=== PATIENT | male | born 1965 | race Caucasian/White ===

== ENCOUNTER 2019-11-27 20:12 | Emergency (ER) | payer MEDICAID ==
[~2019-11-27] VITALS: Ht 185.4 cm; Wt 113.4 kg
[~2019-11-27 20:12] MED LIST: ASPIRIN81 MG ORAL; BACITRACIN-P28.35 GM TP; CLINDAMYCIN HC300 MG ORAL; LEXAPRO10 MG ORAL; LIPITOR10 MG ORAL; METHOCARBAMOL500 MG ORAL; NAPROSYN500 M1 ORAL; NUCYNTA50 MG PO; SERTRALINE HCL50 MG ORAL; TYLENOL EXTRA500 MG ORAL
[2019-11-27 20:30] VITALS: BP 169/113
[2019-11-27] MEDS ORDERED: NORCO 10-325 T1 EACH ORAL (20:30)
[2019-11-27] MEDS ORDERED: Morphine Sulfate 4mg/ml Inj (IV USE ONLY) IVP ONE ×2 (20:30→22:30)
[2019-11-27] MEDS ORDERED: TOPIRAMATE100 MG ORAL (20:30)
--- NOTE | 2019-11-27 20:30 | NUR ---
ED Nurse Note: Pt walked into ED from home for c/o constant chest pain since last night. Pt also reports n/v and has not been able to keep down his pain medication at home in which he takes morphine and norco. Pt also reports pain in his back. Pt states he has vomited any oral intake he has had over the last two days and feels dehydrated. Pt notes strong family hx of CAD and is concerned. Pt is aaox4, breathing is normal and unlabored, no SOB. Pt connected to monitor and storage bin tender, EKG bedside. Will continue to monitor.
--- NOTE | 2019-11-27 20:47 | Emergency Room Report ---
History of Present Illness General Chief Complaint: Chest Pain Source: Patient Present Illness HPI Patient presents with left-sided chest pain radiating to his neck. He began last night. Is fairly constant. He has been vomiting cannot keep down his pain medication. Usually takes 10 mg of morphine and has backup [place] for breakthrough pain. Is been unable to keep down his medications. His stools have been somewhat loose. Denies diaphoresis. He is concerned because he has a very strong family history of coronary disease. Pain in chest /10 now. Back pain is slightly worse but he is used to this - more concerned about chest. Some loose stools - feels might be related to withdrawal. Feverish, not documented. The chronic pain he is treated for his after multiple back surgeries. Is currently disabled. Risk factors strong family history, no diabetes, smoking or hypertension. Has had eval for aneurism = negative in past. 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 Patient History Past Medical History: see triage record Past Surgical History: other - multiple spinal surgeries Pertinent Family History: other - from heart attacks at early age Social History: Reports: alcohol use; Denies: smoking, drug use Social History Narrative Disabled - 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 [employer] Reviewed Nursing Documentation: PMH: Agreed; PSxH: Agreed Nursing Documentation-PMH Past Medical History: No History, Except For Hx Cardiac Problems: Yes - tranthoracic discectomy 2000 Hx Cancer: No Hx Gastrointestinal Problems: No Hx Neurological Problems: Yes - Spinal Stenosis, Back surgery Review of Systems All Other Systems: negative except mentioned in HPI Physical Exam Vital Signs Date Time Temp Pulse Resp B/P (MAP) Pulse Ox O2 Delivery O2 Flow Rate FiO2 11/27/19 20:25 99.0 93 16 169/113 (131) 100 Room Air Sp02 EP Interpretation: reviewed, normal General Appearance: well appearing, no apparent distress, GCS 15 Head: normocephalic Eyes: bilateral eye normal inspection, bilateral eye PERRL, bilateral eye EOMI ENT: moist mucus membranes Neck: full range of motion, supple Respiratory: lungs clear, normal breath sounds Cardiovascular #1: regular rate, rhythm Cardiovascular #2: 2+ radial (R) Gastrointestinal: normal inspection, normal bowel sounds, non tender, no mass, non-distended Genitourinary: no CVA tenderness Musculoskeletal: normal range of motion, digits/nails normal, no calf tenderness, gait/station normal, tender - back, no bone tenderness Neurologic: alert, oriented x3, grossly normal Psychiatric: mood/affect normal Skin: no rash, warm/dry, other - no diaphoresis Medical Decision Making Diagnostic Impression: Primary Impression: ACS (acute coronary syndrome) Additional Impressions: Opiate withdrawal Chronic thoracic back pain Qualified Codes: M54.6 - Pain in thoracic spine; G89.29 - Other chronic pain ER Course Patient with left-sided chest pain radiating to his neck with positive family history. Differential includes acute myocardial infarction, unstable angina, acute coronary syndrome, chest wall pain, gastroenteritis, viral syndrome, opiate withdrawal amongst others. Patient evaluated with EKG, chest x-ray and labs. Patient placed on a nurse monitoring. Aspirin administered along with Zofran and morphine. Based on history and VS, doubt PE or dissection. EKG normal sinus rhythm normal EKG. CXR chronic changes as below. Labs remarkable for neg troponin. Improved. 5/10 pain. Patient presented to , [facility] who accepts. Repeat morphine. Metoprolol and lovenox ordered. Pain decreased to 3/10 and improved. Laboratory Tests Test 11/27/19 20:10 11/27/19 20:30 White Blood Count 8.7 K/UL (4.8-10.8) Red Blood Count 5.15 M/UL (4.70-6.10) Hemoglobin 16.7 G/DL (14.2-18.0) Hematocrit 50.6 % (42.0-52.0) Mean Corpuscular Volume 98 FL (80-99) Mean Corpuscular Hemoglobin 32.4 PG (27.0-31.0) H Mean Corpuscular Hemoglobin Concent 33.0 G/DL (32.0-36.0) Red Cell Distribution Width 12.9 % (11.6-14.8) Platelet Count 217 K/UL (150-450) Mean Platelet Volume 5.2 FL (6.5-10.1) L Neutrophils (%) (Auto) 67.6 % (45.0-75.0) Lymphocytes (%) (Auto) 25.1 % (20.0-45.0) Monocytes (%) (Auto) 6.6 % (1.0-10.0) Eosinophils (%) (Auto) 0.3 % (0.0-3.0) Basophils (%) (Auto) 0.4 % (0.0-2.0) Prothrombin Time 11.9 SEC (9.30-11.50) H Prothrombin Time INR 1.1 (0.9-1.1) Activated Partial Thromboplast Time 31 SEC (23-33) Sodium Level 143 MMOL/L (136-145) Potassium Level 3.6 MMOL/L (3.5-5.1) Chloride Level 107 MMOL/L (98-107) Carbon Dioxide Level 21 MMOL/L (21-32) Anion Gap 15 mmol/L (5-15) Blood Urea Nitrogen 13 mg/dL (7-18) Creatinine 1.1 MG/DL (0.55-1.30) Estimated Glomerular Filtration Rate > 60 mL/min (>60) Glucose Level 100 MG/DL (74-106) Calcium Level 9.0 MG/DL (8.5-10.1) Total Bilirubin 0.5 MG/DL (0.2-1.0) Aspartate Amino Transferase (AST) 23 U/L (15-37) Alanine Aminotransferase (ALT) 45 U/L (12-78) Alkaline Phosphatase 47 U/L (46-116) Total Creatine Kinase 136 U/L (26-308) Troponin I 0.000 ng/mL (0.000-0.056) Pro-B-Type Natriuretic Peptide 87 pg/mL (0-125) Total Protein 8.1 G/DL (6.4-8.2) Albumin 4.6 G/DL (3.4-5.0) Globulin 3.5 g/dL Albumin/Globulin Ratio 1.3 (1.0-2.7) Urine Color Yellow Urine Appearance Clear Urine pH 5 (4.5-8.0) Urine Specific [place] 1.025 (1.005-1.035) Urine Protein 1+ (NEGATIVE) H Urine Glucose (UA) Negative (NEGATIVE) Urine Ketones 1+ (NEGATIVE) H Urine Blood 1+ (NEGATIVE) H Urine Nitrite Negative (NEGATIVE) Urine Bilirubin Negative (NEGATIVE) Urine Urobilinogen Normal MG/DL (0.0-1.0) Urine Leukocyte Esterase Negative (NEGATIVE) Urine RBC 0-2 /HPF (0 - 0) H Urine WBC 0-2 /HPF (0 - 0) Urine Squamous Epithelial Cells None /LPF (NONE/OCC) Urine Bacteria Few /HPF (NONE) Urine Mucus Moderate /LPF (NONE/OCC) H Urine Opiates Screen Negative (NEGATIVE) Urine Barbiturates Screen Negative (NEGATIVE) Phencyclidine (PCP) Screen Negative (NEGATIVE) Urine Amphetamines Screen Negative (NEGATIVE) Urine Benzodiazepines Screen Negative (NEGATIVE) Urine Cocaine Screen Negative (NEGATIVE) Urine Marijuana (THC) Screen Negative (NEGATIVE) EKG Diagnostic Results Rate: normal Rhythm: NSR ST Segments: no acute changes Rhythm Strip Diag. Results EP Interpretation: yes Rhythm: NSR, no PVC's, no ectopy Chest X-Ray Diagnostic Results Chest X-Ray Diagnostic Results : Chest X-Ray Ordered: Yes # of Views/Limited/Complete: 1 View Indication: Chest Pain EP Interpretation: Yes Interpretation: no effusion, no pneumothorax, other - Surgical hardware upper back, elevated left hemidiaphragm and some atelectasis on the left Impression: Other Electronically Signed by: Electronically signed by Yaniv Sadler MD Last Vital Signs Date Time Temp Pulse Resp B/P (MAP) Pulse Ox O2 Delivery O2 Flow Rate FiO2 11/27/19 23:34 62 17 131/73 98 Room Air 11/27/19 20:30 99.0 Status: improved Disposition: SHORT-TERM HOSP Condition: Serious Referrals: NON PHYSICIAN (PCP) Yaniv Sadler MD Nov 27, 2019 20:47
[2019-11-27 21:19] LABS: ANION GAP 15 mmol/L (5-15); BLOOD UREA NITROGEN 13 mg/dL (7-18); CARBON DIOXIDE 21 MMOL/L (21-32); CHLORIDE 107 MMOL/L (98-107); CREATININE 1.1 MG/DL (0.55-1.30); POTASSIUM 3.6 MMOL/L (3.5-5.1); SODIUM 143 MMOL/L (136-145)
--- NOTE | 2019-11-27 21:19 | Diagnostic Imaging Report ---
EXAM: XR Chest, 1 View CLINICAL HISTORY: CP TECHNIQUE: Frontal view of the chest. COMPARISON: 06/15/2016 FINDINGS: Lungs: Linear airspace density of the left lower lung, which is unchanged as compared to prior imaging. Given chronicity, this likely represents scarring. Pleural space: Unremarkable. No pneumothorax. Heart: Unremarkable. No cardiomegaly. Mediastinum: Unremarkable. Bones/joints: Unremarkable. Metallic hardware overlies the mid thoracic spine. Unchanged from prior imaging. Lower cervical spinal fusion hardware noted. Upper abdomen: Stable eventration of the left hemidiaphragm. IMPRESSION: No acute findings in the chest.
[2019-11-27 21:23] LABS: BASOPHILS % (AUTO) 0.4 % (0.0-2.0); EOSINOPHILS % (AUTO) 0.3 % (0.0-3.0); HEMATOCRIT 50.6 % (42.0-52.0); HEMOGLOBIN 16.7 G/DL (14.2-18.0); LYMPHOCYTES % (AUTO) 25.1 % (20.0-45.0); MEAN CORPUSCULAR VOLUME 98 FL (80-99); MONOCYTES % (AUTO) 6.6 % (1.0-10.0); NEUTROPHILS % (AUTO) 67.6 % (45.0-75.0); PLATELET COUNT 217 K/UL (150-450); RED BLOOD COUNT 5.15 M/UL (4.70-6.10); RED CELL DISTRIBUTION WIDTH 12.9 % (11.6-14.8); WHITE BLOOD COUNT 8.7 K/UL (4.8-10.8)
[2019-11-27 21:25] LABS: INR 1.1 (0.9-1.1)
[2019-11-27 21:31] LABS: ALANINE AMINOTRANSFERASE 45 U/L (12-78); ALBUMIN 4.6 G/DL (3.4-5.0); ALBUMIN/GLOBULIN RATIO 1.3 (1.0-2.7); ALKALINE PHOSPHATASE 47 U/L (46-116); ASPARTATE AMINO TRANSFERASE 23 U/L (15-37); BILIRUBIN,TOTAL 0.5 MG/DL (0.2-1.0); CREATINE KINASE 136 U/L (26-308)
[2019-11-27 21:41] LABS: APPEARANCE,URINE CLEAR; BILIRUBIN, URINE NEGATIVE (NEGATIVE); COLOR,URINE YELLOW; GLUCOSE, URINE (UA) NEGATIVE (NEGATIVE); KETONES,URINE 1+ (NEGATIVE); PH,URINE 5 (4.5-8.0); PROTEIN,URINE 1+ (NEGATIVE)
[2019-11-27 21:42] LABS: LEUKOCYTE ESTERASE ,URINE NEGATIVE (NEGATIVE); NITRITE,URINE NEGATIVE (NEGATIVE); UROBILINOGEN,URINE NORMAL MG/DL (0.0-1.0)
--- NOTE | 2019-11-27 21:45 | NUR ---
ED Nurse Note: Pt is on his cell phone, resting in bed. NAD. Safety measures in place.
[2019-11-27 22:04] VITALS: BP 134/80
[2019-11-27] MEDS ORDERED: Enoxaparin 120 mg inj SUBQ STA (22:24)
[2019-11-27] MEDS ORDERED: Metoprolol Tartrate 5mg/5ml Inj IVP STA (22:24)
--- NOTE | 2019-11-27 23:30 | NUR ---
ED Nurse Note: Pt is resting in bed, NAD. Vitals are stable. Pt notes mild decreased in pain. Will cont. to monitor. Awaiting on transport to [facility].
[2019-11-27 23:34] VITALS: BP 131/73
--- NOTE | 2019-11-28 | NUR ---
ED Nurse Note: Report given to ROLANDO Stuart at [facility].
[2019-11-28 00:05] VITALS: BP 141/80
--- NOTE | 2019-11-28 00:05 | NUR ---
ED Nurse Note: Pt is stable for transfer to [facility] at this time per ERMD. Pt is aaox4, breathing is normal and unlabored with stable vital signs. Pt being transported via [facility] ambulance ALS unit 25 via gurney. Report given to pharmacy assistant. Pt IV is patent and intact. Pt took all belongings.
== END 2019-11-28 00:05 | disposition short-term general hospital (02) ==
LOC: EMR 20:32 → EDBEDREQ 20:42 → EMR 11-28 00:05
DX: I24.9 Acute ischemic heart disease, unspecified (principal); F11.23 Opioid dependence with withdrawal; M54.6 Pain in thoracic spine; G89.29 Other chronic pain; R11.10 Vomiting, unspecified; Z88.2 Allergy status to sulfonamides; Z88.8 Allergy status to other drugs, medicaments and biological substances
CPT/HCPCS: 36415; 71045; 80053; 80307; 81003; 82550; 83880; 84484; 85025; 85610; 85730; 93005; 96361; 96374; 96375; 96376; J1650; J2270; J2405; J7030; Z7502; 99285

== ENCOUNTER 2020-06-19 12:06 | Emergency (ER) | payer MEDICAID ==
[~2020-06-19] VITALS: Ht 185.4 cm; Wt 111.1 kg
[~2020-06-19 12:06] MED LIST changes: +NORCO 10-325 T1 EACH ORAL; +TOPIRAMATE100 MG ORAL
--- NOTE | 2020-06-19 12:46 | NUR ---
ED Nurse Note: pt was taken to ct, ambulatory
--- NOTE | 2020-06-19 13:28 | Diagnostic Imaging Report ---
Indications: Fall, injury Technique: Spiral acquisitions obtained through the brain. Angled axial and coronal 5 x 5 mm slices were reconstructed. Total dose length product 1048 mGycm. CTDI vol(s) 53 mGy. Dose reduction achieved using automated exposure control Comparison: None. Findings: No acute intracranial hemorrhage or edema, mass effect, nor midline shift. Normal bella-white differentiation. Normal size ventricles and extra axial CSF spaces. Visualized orbits and sinuses are unremarkable. The mastoids are clear. The calvarium is intact. Impression: Negative The CT scanner at [facility] is accredited by the [employer] and the scans are performed using protocols designed to limit radiation exposure to as low as reasonably achievable to attain images of sufficient resolution adequate for diagnostic evaluation.
--- NOTE | 2020-06-19 13:41 | Diagnostic Imaging Report ---
Indication: Pain, trauma, status post fall, injury Technique: Spiral acquisitions obtained through the cervical spine. No IV contrast utilized. Multiplanar reconstructions were generated. Total dose length product 478 mGycm. CTDIvol(s) 19 mGy. Dose reduction achieved using automated exposure control. Comparison: No comparison CT scans. Reference made to plain radiographs 01/11/2016 Findings: Bony alignment is normal. Vertebral body heights are preserved. There is anterior fusion hardware bridging C5-6 and C6-7. This is new since the prior 2016 plain radiograph. The discs do not appear to be ankylosed. No acute fracture. No dislocation. At C3-4, there is mild narrowing of the neural foramen on the right. No significant disc narrowing, disc bulge or protrusion, or spinal canal stenosis. At C5-6, there is moderate to severe narrowing of the left neural foramen. There is a posterior osteophyte, but this does not appear to significantly compromise the spinal canal. At C6-7, there is posterior osteophyte complex resulting in mild narrowing of the spinal canal. There is moderate narrowing of the left neural foramen. At the remaining disc levels, no significant disc bulge or protrusion, spinal stenosis, or neural foraminal stenosis. Included extra spinal soft tissues are unremarkable Impression: No acute bony trauma Degenerative and postsurgical changes as described The CT scanner at [facility] is accredited by the [employer] and the scans are performed using protocols designed to limit radiation exposure to as low as reasonably achievable to attain images of sufficient resolution adequate for diagnostic evaluation.
--- NOTE | 2020-06-19 14:10 | Diagnostic Imaging Report ---
CLINICAL INDICATION:Trauma, fall, injury, pain TECHNIQUE: No oral contrast, per emergency room physician request. No IV contrast, per emergency room physician request. Spiral acquisitions obtained through the chest, abdomen, and pelvis. Multiplanar reconstructions were generated. Total dose length product 830 mGycm. CTDIvol(s) 11 mGy. Radiation dose was minimized using automated exposure control COMPARISON: none FINDINGS Chest: There is fusion hardware in the mid thoracic spine. The bones are otherwise unremarkable. No evidence of soft tissue contusion or hematoma A small peripheral bulla is seen in the medial right upper lobe. A few areas of air-trapping are seen in the right lower lobe. There is some atelectasis at the right lung base. The left hemidiaphragm is elevated and there are some atelectatic changes in the left lower lobe. Areas of air-trapping and possibly small bullae are seen in the left upper lobe. Scarring is seen in the medial left upper lobe. No infiltrates, effusions, masses, or nodules. No evidence of pulmonary contusion demonstrated. No mediastinal or hilar mass or adenopathy demonstrated. The thyroid is unremarkable. Heart size is normal. No pericardial effusion. Unremarkable esophagus. No axillary or chest wall mass or adenopathy. Abdomen pelvis: Surgical hardware is seen bridging the the L4-5 and L5-S1 discs. There is also surgical hardware bridging the spinous processes at the same level. There is evidence of prior L5 laminotomy. No acute fracture. No dislocation. No evidence of soft tissue contusion or hematoma. No evidence of diverticulosis or diverticulitis. The left hemidiaphragm is elevated. Normal appendix. No small bowel distention. No free or loculated intraperitoneal gas or fluid is evident. Lack of IV contrast limits assessment of the solid organs. The liver is mildly hypoattenuating. No gross focal abnormality. The gallbladder, bile ducts, pancreas, spleen, adrenals, kidneys are all unremarkable. No renal or ureteral calculi. No hydronephrosis nor hydroureter. No retroperitoneal or mesenteric mass or adenopathy. No pelvic mass or adenopathy. IMPRESSION: No acute abnormality. No evidence of acute soft tissue, bone, solid organ, or pulmonary trauma Mild COPD changes Post surgical changes of the spine as described Very mild fatty liver The CT scanner at [facility] is accredited by the [employer] and the scans are performed using protocols designed to limit radiation exposure to as low as reasonably achievable to attain images of sufficient resolution adequate for diagnostic evaluation.
[2020-06-19 14:12] VITALS: BP 152/84
--- NOTE | 2020-06-19 14:12 | Diagnostic Imaging Report ---
Clinical Indication:Trauma, pain Technique: 3 views of the left wrist Comparison: None Findings: No acute fracture. No dislocation. There is unusual developmental appearing deformity of the scaphoid. There is very mild ulnar minus variance. Impression: No acute bony trauma
--- NOTE | 2020-06-19 14:14 | Diagnostic Imaging Report ---
Clinical Indication:Trauma, pain Technique: 3 views of the right wrist Comparison: None Findings: No acute fracture. No dislocation. Unusual bony protuberance comes off of the anterior upper pole of the scaphoid. This is presumably developmental, as it is identical to the contralateral side. Impression: No acute bony trauma
--- NOTE | 2020-06-19 14:17 | Diagnostic Imaging Report ---
Indications: Trauma, pain, injury, fall Technique: Spiral acquisitions obtained through the lumbar spine. Multiplanar reconstructions were generated. No IV contrast utilized. Total dose length product 830 mGycm. CTDIvol(s) 11 mGy. Dose reduction achieved using automated exposure control Comparison: none Findings: Bony alignment is normal. Vertebral body heights are preserved. The disc spaces are preserved. Disc spacers are seen at the L4-5 and L5-S1 discs. There is evidence of some ankylosis of both of the discs. There is also posterior fusion hardware bridging the L4-5 and L5-S1 spinous processes. There is evidence of prior bilateral L5 laminotomies. No acute fracture. No dislocation. There are degenerative changes of the bilateral sacroiliac joints. At L3-4, short pedicles, minimal circumferential annular bulge, facet and ligamentum flavum hypertrophy result in borderline narrowing of spinal canal. Bilateral neural foramina are preserved. At L4-5, facet hypertrophy results in mild narrowing of the right neural foramen. No significant disc bulge or protrusion or spinal stenosis. At the remaining disc levels, no significant disc bulge or protrusion, spinal stenosis, or neural foraminal stenosis. The included extraspinal soft tissues are unremarkable. Impression: No acute bony trauma Degenerative and postsurgical changes as described The CT scanner at [facility] is accredited by the [employer] and the scans are performed using protocols designed to limit radiation exposure to as low as reasonably achievable to attain images of sufficient resolution adequate for diagnostic evaluation.
--- NOTE | 2020-06-19 14:27 | Emergency Room Report ---
History of Present Illness General Chief Complaint: Multiple Trauma/Fall Source: Medical Record Present Illness HPI 55-year-old male with history of chronic low back pain status post surgery here status post fall earlier today. Patient complains of low back pain without radiation to the legs, denies any saddle paresthesia or urinary bowel incontinence.. Has not taken medication for symptom relief. Denies any tingling or numbness., Has a steady gait. Has full range of motion of the affected side. Speaking full sentences, denies blurred vision, dizziness. No bony tenderness palpated. Denies chest pain, shortness. He reports that he slipped and fell on his back, and prevented himself from falling by outstretching his hand I ordered CT of head, neck, lumbar region, chest abdomen pelvis as well as bilateral wrist x-rays and asked automotive exhaust emissions technician to extend the emergency room to the hand however he did not do so and patient asked for a new set of x-rays of hands as well as demented Covid swab was reported," I was placed into the patient was coughing all over me in the room." Patient was originally placed next to another patient who was tested negative for Covid however patient was noted a Covid test. Allergies: Coded Allergies: CEPHALOSPORINS (Verified Allergy, Unknown, 03/13/15) SULFA (SULFONAMIDE ANTIBIOTICS) (Verified Allergy, Unknown, 03/13/15) Uncoded Allergies: PERSERVATIVES IN LIDOCAINE (Allergy, Unknown, 06/15/16) COVID-19 Screening Contact w/high risk pt: No Recent Travel to affected area: No Experienced COVID-19 symptoms?: No COVID-19 Testing performed LAYER OUT: No Patient History Past Medical History: see triage record Past Surgical History: unable to obtain Pertinent Family History: none Reviewed Nursing Documentation: PMH: Agreed; PSxH: Agreed Nursing Documentation-PMH Past Medical History: No History, Except For Hx Cardiac Problems: Yes - tranthoracic discectomy 2000 Hx Cancer: No Hx Gastrointestinal Problems: No Hx Neurological Problems: Yes - Spinal Stenosis, Back surgery Review of Systems All Other Systems: negative except mentioned in HPI Physical Exam Vital Signs Date Time Temp Pulse Resp B/P (MAP) Pulse Ox O2 Delivery O2 Flow Rate FiO2 06/19/20 12:21 100.0 101 20 152/84 (106) 96 Room Air Sp02 EP Interpretation: reviewed, normal General Appearance: no apparent distress, alert, GCS 15, non-toxic Head: normocephalic, atraumatic Eyes: bilateral eye normal inspection, bilateral eye PERRL ENT: hearing grossly normal, no angioedema, normal voice Neck: full range of motion, supple, thyroid normal, no meningismus, no bony tend, supple/symm/no masses Cardiovascular #1: normal peripheral pulses, regular rate, rhythm, no edema, no gallop Cardiovascular #2: 2+ carotid (R), 2+ carotid (L), 2+ radial (R), 2+ radial (L) Gastrointestinal: non-distended Musculoskeletal: back normal, no calf tenderness, pelvis stable, gait/station normal, no lower extremity edema, non-tender, other - Surgical scar noted lumbar area appears to be old Neurologic: alert, motor strength/tone normal, oriented x3, sensory intact, responsive, speech normal Psychiatric: judgement/insight normal, memory normal, mood/affect normal, no suicidal/homicidal ideation Skin: no rash Lymphatic: no adenopathy Medical Decision Making PA Attestation All diagnoses and treatment plans were reviewed and discussed with my supervising physician Dr. Haley Diagnostic Impression: Primary Impression: Cervical strain Additional Impressions: Wrist sprain Lumbar contusion Finger sprain ER Course 55-year-old male with history of chronic low back pain status post surgery here status post fall earlier today. Patient complains of low back pain without radiation to the legs, denies any saddle paresthesia or urinary bowel incontin ence.. Has not taken medication for symptom relief. Denies any tingling or numbness., Has a steady gait. Has full range of motion of the affected side. Speaking full sentences, denies blurred vision, dizziness. No bony tenderness palpated. Denies chest pain, shortness. He reports that he slipped and fell on his back, and prevented himself from falling by outstretching his hand I ordered CT of head, neck, lumbar region, chest abdomen pelvis as well as bilateral wrist x-rays and asked automotive exhaust emissions technician to extend the emergency room to the hand however he did not do so and patient asked for a new set of x-rays of hands as well as demented Covid swab was reported," I was placed into the patient was coughing all over me in the room." Patient was originally placed next to another patient who was tested negative for Covid however patient was noted a Covid test. Ddx considered but are not limited to : Wrist sprain, wrist strain, wrist fracture, lumbar contusion versus sprain versus strain, cervical sprain versus strain versus fracture, finger sprain versus fracture Vital signs: are WNL, pt. is afebrile H&PE are most consistent with: Finger sprain, wrist sprain, lumbar contusion, cervical strain ORDERS: Wrist x-ray x-ray, CT head no contrast, CT C-spine no contrast, CT chest abdomen pelvis noncontrast, CT L-spine no contrast, ibuprofen 800 as patient requested ED INTERVENTIONS: Patient deferred Velcro thumb spica, reports that he already takes his fingers together himself, for follow-up with Ortho. DISCHARGE: At this time pt. is stable for d/c to home. Will provide printed patient care instructions, and any necessary prescriptions. Care plan and follow up instructions have been discussed with the patient prior to discharge. Patient reports that he has narcotics at home and will take. Request ibuprofen 800. Patient to follow-up with alignment specialist. Patient take medication as directed, if worsening symptoms return to the emergency room. a sent out Covid swab was collected. Other X-Ray Diagnostic Results Other X-Ray Diagnostic Results #1: X-Ray ordered: left wrist # of Views/Limited Vs Complete: 3 View Indication: Pain EP Interpretation: Yes PA Xray: Interpretation reviewed, by supervising MD, and agrees with findings. Interpretation: no dislocation, no soft tissue swelling, no fractures Impression: No acute disease Electronically Signed by: Sabina Queenibdong Text Procedure: XRAY Wrist Complete L Clinical Indication:Trauma, pain Technique: 3 views of the left wrist Comparison: None Findings: No acute fracture. No dislocation. There is unusual developmental appearing deformity of the scaphoid. There is very mild ulnar minus variance. Impression: No acute bony trauma Other X-Ray Diagnostic Results #2: X-Ray ordered: right wrist # of Views/Limited Vs Complete: 3 View Indication: Pain EP Interpretation: Yes PA Xray: Interpretation reviewed, by supervising MD, and agrees with findings. Interpretation: no dislocation, no soft tissue swelling, no fractures Impression: No acute disease Electronically Signed by: Sabina ARREAGA Scribe Text Procedure: XRAY Wrist Complete R Clinical Indication:Trauma, pain Technique: 3 views of the right wrist Comparison: None Findings: No acute fracture. No dislocation. Unusual bony protuberance comes off of the anterior upper pole of the scaphoid. This is presumably developmental, as it is identical to the contralateral side. Impression: No acute bony trauma Other X-Ray Diagnostic Results #3: X-Ray ordered: Left hand # of Views/Limited Vs Complete: 2 View Indication: Pain EP Interpretation: Yes PA Xray: Interpretation reviewed, by supervising MD, and agrees with findings. Interpretation: no dislocation, no soft tissue swelling, no fractures Impression: No acute disease Electronically Signed by: Sabina ARREAGA Scribe Text Procedure: XRAY Hand Ltd 2v L Indication: Pain, trauma Technique: 2 views left hand Comparison: none Findings: No acute fracture. No dislocation. Joint spaces are preserved Impression: Negative Other X-Ray Diagnostic Results #4: X-Ray ordered: right hand # of Views/Limited Vs Complete: 2 View Indication: Pain EP Interpretation: Yes PA Xray: Interpretation reviewed, by supervising MD, and agrees with findings. Interpretation: no dislocation, no soft tissue swelling, no fractures Impression: No acute disease Electronically Signed by: Sabina ARREAGA Scribe Text Procedure: XRAY Hand Ltd 2v R Indication: Reason For Exam: TRAUMA Technique: 2 views right hand Comparison: none Findings: No acute fracture. No dislocation. Joint spaces are preserved. Impression: Negative CT/MRI/US Diagnostic Results CT/MRI/US Diagnostic Results #1: Imaging Test Ordered: CT head no contrast Impression Technique: Spiral acquisitions obtained through the brain. Angled axial and coronal 5 x 5 mm slices were reconstructed. Total dose length product 1048 mGycm. CTDI vol(s) 53 mGy. Dose reduction achieved using automated exposure control Comparison: None. Findings: No acute intracranial hemorrhage or edema, mass effect, nor midline shift. Normal bella-white differentiation. Normal size ventricles and extra axial CSF spaces. Visualized orbits and sinuses are unremarkable. The mastoids are clear. The ca lvarium is intact. Impression: Negative CT/MRI/US Diagnostic Results #2: Imaging Test Ordered: CT C-spine noncontrast Impression Findings: Bony alignment is normal. Vertebral body heights are preserved. There is anterior fusion hardware bridging C5-6 and C6-7. This is new since the prior 2016 plain radiograph. The discs do not appear to be ankylosed. No acute fracture. No dislocation. At C3-4, there is mild narrowing of the neural foramen on the right. No significant disc narrowing, disc bulge or protrusion, or spinal canal stenosis. At C5-6, there is moderate to severe narrowing of the left neural foramen. There is a posterior osteophyte, but this does not appear to significantly compromise the spinal canal. At C6-7, there is posterior osteophyte complex resulting in mild narrowing of the spinal canal. There is moderate narrowing of the left neural foramen. At the remaining disc levels, no significant disc bulge or protrusion, spinal stenosis, or neural foraminal stenosis. Included extra spinal soft tissues are unremarkable Impression: No acute bony trauma Degenerative and postsurgical changes as described CT/MRI/US Diagnostic Results #3: Imaging Test Ordered: CT L-spine no contrast Impression Comparison: none Findings: Bony alignment is normal. Vertebral body heights are preserved. The disc spaces are preserved. Disc spacers are seen at the L4-5 and L5-S1 discs. There is evidence of some ankylosis of both of the discs. There is also posterior fusion hardware bridging the L4-5 and L5-S1 spinous processes. There is evidence of prior bilateral L5 laminotomies. No acute fracture. No dislocation. There are degenerative changes of the bilateral sacroiliac joints. At L3-4, short pedicles, minimal circumferential annular bulge, facet and ligamentum flavum hypertrophy result in borderline narrowing of spinal canal. Bilateral neural foramina are preserved. At L4-5, facet hypertrophy results in mild narrowing of the right neural foramen. No significant disc bulge or protrusion or spinal stenosis. At the remaining disc levels, no significant disc bulge or protrusion, spinal stenosis, or neural foraminal stenosis. The included extraspinal soft tissues are unremarkable. Impression: No acute bony trauma Degenerative and postsurgical changes as described CT/MRI/US Diagnostic Results #4: Imaging Test Ordered: CT chest abdomen pelvis no contrast Impression IMPRESSION: No acute abnormality. No evidence of acute soft tissue, bone, solid organ, or pulmonary trauma Mild COPD changes Post surgical changes of the spine as described Very mild fatty liver The CT scanner at [facility] is accredited by the [employer] and the scans are performed using protocols designed to limit radiation exposure to as low as reasonably achievable to attain images of sufficient resolution adequate for diagnostic evaluation. Last Vital Signs Date Time Temp Pulse Resp B/P (MAP) Pulse Ox O2 Delivery O2 Flow Rate FiO2 06/19/20 14:12 101 20 Room Air 06/19/20 14:12 100.0 152/84 96 Disposition: HOME, SELF-CARE Condition: Stable Scripts Ibuprofen (Ibu) 800 Mg Tablet 800 MG PO TID, #30 TAB Prov: Sabina Flores 06/19/20 Referrals: [facility]ERR[facility] (PCP) Patient Instructions: Cervical Strain and Sprain With Rehab-Sports[facility], Contusion Additional Instructions: Take medication as directed, follow primary care provider alignment specialist, if worsening symptoms return to emergency room Sabina Flores Jun 19, 2020 14:27
[2020-06-19] MEDS ORDERED: ROBAXIN-500MG ORAL (14:31)
[2020-06-19] MEDS ORDERED: IBUPROFEN600 M1 ORAL (14:31)
[2020-06-19] MEDS ORDERED: IBU800 MG PO (15:07)
[2020-06-19 15:14] VITALS: BP 148/82
--- NOTE | 2020-06-19 15:14 | NUR ---
ER DISCHARGE NOTE: Patient is cleared to be discharged per ERMD, pt is aox4, on room air, with stable vital signs. pt was given dc and prescription instructions, pt was able to verbalize understanding, pt id band removed. pt is able to ambulate with steady gait. pt took all belongings.
--- NOTE | 2020-06-19 15:35 | Diagnostic Imaging Report ---
Indication: Reason For Exam: TRAUMA Technique: 2 views right hand Comparison: none Findings: No acute fracture. No dislocation. Joint spaces are preserved. Impression: Negative
--- NOTE | 2020-06-19 15:36 | Diagnostic Imaging Report ---
Indication: Pain, trauma Technique: 2 views left hand Comparison: none Findings: No acute fracture. No dislocation. Joint spaces are preserved Impression: Negative
== END 2020-06-19 15:14 | disposition home or self-care (01) ==
LOC: EMR 12:28
DX: S16.1XXA Strain of muscle, fascia and tendon at neck level, initial encounter (principal); S63.501A Unspecified sprain of right wrist, initial encounter; S63.502A Unspecified sprain of left wrist, initial encounter; S30.0XXA Contusion of lower back and pelvis, initial encounter; S63.619A Unspecified sprain of unspecified finger, initial encounter; W01.0XXA Fall on same level from slipping, tripping and stumbling without subsequent striking against object, initial encounter; Y92.9 Unspecified place or not applicable; Z20.828 Contact with and (suspected) exposure to other viral communicable diseases; K76.0 Fatty (change of) liver, not elsewhere classified; J44.9 Chronic obstructive pulmonary disease, unspecified; Z88.1 Allergy status to other antibiotic agents; Z88.2 Allergy status to sulfonamides; Z98.1 Arthrodesis status
CPT/HCPCS: 70450; 71250; 72125; 72131; 73110; 73120; 74176; U0004; Z7502; 99284